=== PATIENT | female | born 1960 | race Caucasian/White ===

== ENCOUNTER 2024-01-29 09:14 | Outpatient (REF) | payer OTHER, SELFPAY ==
--- NOTE | ~2024-01-29 | FL_ITS ---
EXAMINATION: XR FLUOROSCOPY UPPER GI WITH AIR CLINICAL INFORMATION: Hoarseness and throat. Dysphagia. History of gastric bypass COMPARISON: None TECHNIQUE: Fluoroscopic air contrast upper GI examination was performed utilizing standard techniques with thin and thick barium and effervescent granules. Numerous spot images were obtained. FINDINGS: Lateral cine images of the oropharynx and hypopharynx demonstrate normal swallow mechanism with normal epiglottic inversion and soft palate elevation. No tracheal penetration, glottic or subglottic aspiration identified. Mild nasopharyngeal reflux present. Hypopharyngeal structures appear normal without evidence of mass or diverticulum. There is at least moderate cricopharyngeal achalasia present. Dual and single contrast images of the esophagus demonstrate normal caliber, contour, and mucosal pattern. No evidence of stricture, mass, or ulcerations identified. There is to and fro motion of the barium column with nonpropulsive tertiary contractions noted throughout the esophagus. Small type I hiatal hernia is present. No significant gastroesophageal reflux was seen during the course of the examination and on reflux views. Dual contrast and single contrast images of the stomach demonstrated postsurgical changes consistent with prior history of Elsa-en-Y gastric bypass. The gastric gastrojejunostomy is patent. No anastomotic stricture is seen. The gastric pouch mucosa is without masses or ulcerations. Contrast freely passed into the alimentary limb. The imaged jejunum has a normal fold pattern and caliber. FLUOROSCOPY TIME: 3 minutes 23 seconds Number of Spot Images: 9 Number of Cine: 12 DOSE AREA PRODUCT: 2094 uGy-m2 (microgray-meter squared) FL/FL barium swallow with air IMPRESSION: 1. Moderate cricopharyngeal achalasia. 2. Esophageal dysmotility. 3. Small to moderate sized type I hiatal hernia. 4. Post surgical changes consistent with prior history of Elsa-en-Y gastric bypass . The gastrojejunostomy is patent. No evidence of stricture. This procedure was performed by Sylvester Mcnulty PA-C, and supervised by Dr. uDnn
== END 2024-01-29 09:15 | disposition home or self-care (01) ==
LOC: HO.XRAY 09:14
PROVIDERS: Visit Provider Otolaryngology
DX: R13.10 Dysphagia, unspecified (principal)
CPT/HCPCS: 74221

== ENCOUNTER → 2024-01-29 09:16 | Outpatient (BNV) | payer OTHER, SELFPAY | PROVIDERS: Visit Provider Physician Assistant Surgical | DX: R13.10 Dysphagia, unspecified (principal) | CPT/HCPCS: 74221 ==

== ENCOUNTER 2024-02-05 15:50 | Outpatient (REF) | payer OTHER, SELFPAY ==
--- NOTE | ~2024-02-05 | CT_ITS ---
EXAMINATION: CT SOFT TISSUE NECK WITH CONTRAST CLINICAL INFORMATION: Dysphasia COMPARISON: None available. TECHNIQUE: Following the intravenous administration of 65 mL of Omnipaque 350 intravenous contrast, helical imaging was performed in the axial plane with generation of coronal and sagittal reformatted images. This CT examination was performed using dose optimization techniques as appropriate, variously including the following: *Automated exposure control *Adjustment of mA and/or kV according to patient size (this includes techniques or standardized protocols for targeted exams where dose is matched to indication/reason for exam; i.e. extremities or head) *Use of iterative reconstruction technique DLP: 328 mGy-cm FINDINGS: No suspicious enhancement. No abnormally enlarged neck lymph node or mass. Limited evaluation of the oral cavity secondary to streak artifacts from dental amalgam. Otherwise, the oropharynx is unremarkable. The nasopharynx, hypopharynx, and laryngeal structures are also unremarkable. 9 x 8 mm hypoattenuating nodule within the right thyroid lobe. The parotid and submandibular as well as the left thyroid lobe are unremarkable. The visualized orbits are unremarkable. The paranasal sinuses and mastoid air cells are clear. The visualized vasculature of the neck are unremarkable. The visualized portions of the brain are unremarkable. No acute osseous abnormality. No lytic or blastic osseous lesions. Multilevel degenerative changes of the visualized spine. Mosaic attenuation in bilateral lung apices. CT/CT soft tissue neck w IV con IMPRESSION: -Limited evaluation of the oral cavity secondary to streak artifacts from dental amalgam. Otherwise, unremarkable CT neck soft tissue. No abnormally enlarged neck lymph node or suspicious neck mass. -9 mm hypoattenuating nodule within the right thyroid lobe. No imaging follow-up recommended.
[2024-02-05] MEDS: iohexoL 350 MG/ML 100 ML INFUS..BTL 65 ML IV (16:31)
[2024-02-06 08:57] LABS: Creatinine POC 0.9 mg/dL (0.5-1.4); GFR POC > 60
== END 2024-02-05 15:51 | disposition home or self-care (01) ==
LOC: HO.CT 15:50
PROVIDERS: Visit Provider Otolaryngology
DX: R13.10 Dysphagia, unspecified (principal); R49.0 Dysphonia; Z86.69 Personal history of other diseases of the nervous system and sense organs
CPT/HCPCS: 70491; 82565; Q9967